=== PATIENT | male | born 1945 | race Caucasian/White ===

== ENCOUNTER 2018-11-15 11:38 | Observation (INO) ==
[2018-11-07 08:47] LABS: HEMOGLOBIN 15.6 g/dL (14.0-18.0); MCH 30.6 PG (27-31); MCHC 33.9 g/dL (33-37); MCV 90.2 FL (81-99); MPV 11.7 FL (7.4-10.4); RBC 5.1 XMIL (4.7-6.1); RDW 13.8 % (11.5-14.5); WBC 6.37 X1000 (4.8-10.8)
--- NOTE | 2018-11-07 09:01 | EKG Report ---
Test Performed on : 11/07/2018 08:04:46 AM Test Reason : pat Blood Pressure : / mmHG Vent. Rate : 070 BPM Atrial Rate : 057 BPM P-R Int : 168 ms QRS Dur : 094 ms QT Int : 400 ms P-R-T Axes : 014 -34 -10 degrees QTc Int : 432 ms Sinus bradycardia. with occasional premature ventricular complexes. Left axis deviation Nonspecific T wave abnormality Abnormal ECG When compared with ECG of 24-JUN-2016 07:08, No significant change was found Confirmed by Josué MCKENNA, Luis Ornelas ([id number]) on 11/08/2018 6:36:13 PM
[2018-11-07 09:19] LABS: AGAP 11; BUN 9 mg/dL (8-22); CALCIUM 8.8 mg/dL (8.8-10.2); CHLORIDE 104 mmol/L (98-107); COSMO 280; ESTIMATED GFR > 60; GLUCOSE 98 mg/dL (70-104); POTASSIUM 3.9 mmol/L (3.5-5.1); SODIUM 141 mmol/L (136-145); TCO2 26 mmol/L (25-35)
[~2018-11-15 11:38] MED LIST: DIPRIVAN 1% ONE; XYLOCAINE-MPF 2% ONE
[2018-11-15] MEDS ORDERED: XYLOCAINE-MPF 2% ONE (13:08)
[2018-11-15] MEDS ORDERED: QUELICIN (DOSE) ONE (13:08)
[2018-11-15] MEDS ORDERED: DIPRIVAN 1% ONE (13:08)
[2018-11-15] MEDS ORDERED: NORCURON ONE (13:45)
[2018-11-15] MEDS ORDERED: FENTANYL ONE ×2 (14:03→14:35)
[2018-11-15] MEDS ORDERED: ZOFRAN ONE (14:12)
[2018-11-15] MEDS ORDERED: DECADRON ONE (14:12)
[2018-11-15] MEDS: NEOSPORIN G.U. IRRIGANT ONE ×2 (14:17→16:56)
[2018-11-15] MEDS ORDERED: LR 1,000 ML ONE (14:27)
[2018-11-15] MEDS ORDERED: REGLAN ONE (14:27)
[2018-11-15] MEDS ORDERED: KEFZOL 1 GM/D5W 2 GM/100 ML IVPB ONE (14:27)
[2018-11-15] MEDS ORDERED: PEPCID ONE (14:27)
[2018-11-15] MEDS ORDERED: ROBINUL ONE ×2 (14:52→16:43)
[2018-11-15] MEDS ORDERED: EPHEDRINE ONE (15:58)
[2018-11-15] MEDS ORDERED: ZEMURON ONE (16:09)
[2018-11-15] MEDS ORDERED: B & O 15A SUPP ONE (16:40)
[2018-11-15] MEDS ORDERED: NEOSTIGMINE ONE (16:44)
[2018-11-15] MEDS: DILAUDID ONE ×4 (17:40→18:04)
[2018-11-15] MEDS ORDERED: NORCO-5 PO PRN (19:24)
[2018-11-15] MEDS ORDERED: NORCO-10 PO PRN (19:24)
[2018-11-15] MEDS ORDERED: NORCO-7.5 PO PRN (19:25)
[2018-11-15] MEDS ORDERED: SALINE LOCK IV FLUID XX ONE (19:29)
[2018-11-15] MEDS ORDERED: SODIUM CHLORIDE 0.9% INJ PRN (19:30)
[2018-11-15] MEDS ORDERED: PHENERGAN IV PRN (19:30)
[2018-11-15] MEDS ORDERED: LABETALOL IV PRN (19:30)
[2018-11-15] MEDS ORDERED: B & O 15A SUPP PR PRN (19:30)
--- NOTE | 2018-11-15 20:11 | OPERATIVE NOTE ---
PROCEDURE DATE: 11/15/2018 SURGEON: Dr. Kong Bautista. PREOPERATIVE DIAGNOSES: Enlarged prostate with obstructive voiding, gross hematuria, and cold cup biopsies of the prostatic urethra. ANESTHESIA: General endotracheal. FINDINGS: Cystoscopic exam: Urethra - greater than 21 [place] without stricture. Prostate - papillary-like lesions or polyps in the distal prostatic urethra. Prostate coapting lateral lobes, length 7 cm median lobe. Bladder - the ureteral orifices could not be visualized with the cystoscope secondary to bleeding. There were grade 3 trabeculations and cellules. After the prostate was removed and the bleeding was under control, the ureteral orifices were normal bilaterally and no papillary lesions seen in the bladder. A rectal exam reveals a prostate of greater than 100 grams and smooth. INDICATION FOR PROCEDURE: This 72-year-old male has a history of intermittent gross hematuria with obstructive voiding symptoms. An in-office cystoscopic exam revealed a markedly-enlarged prostate with the lesions in the distal prostatic urethra. DESCRIPTION OF PROCEDURE: After informed consent was obtained from the patient and him receiving IV antibiotics, he was taken the main OR cystoscopy room and placed in a supine position. General endotracheal anesthesia was achieved. He was then placed in the low lithotomy position and prepped and draped in the usual sterile fashion for cystoscopic exam. A 21-Guamanian cystoscope was passed through the patient's urethra, prostate, and into the bladder. It was planned to do bilateral retrograde ureteral pyelograms, but because of the large prostate and some bleeding the ureteral orifices could not initially be visualized. The cystoscope was removed. A 28-Guamanian continuous flow resectoscope sheath was placed. The thick Gyrus loop electrode was placed. With the large scope, the ureteral orifices were able to be visualized and appeared normal. The verumontanum was visualized. The resection was started at the 6 o'clock position, going part way up on the right lateral lobe and part way up on the left lateral lobe. This was to open a channel and 3 steps had to be taken because of the very large length of the prostate. After the channel was open, the resection was started at the 6 o'clock position going from the level of the bladder neck and level of the verumontanum proceeding in a counterclockwise direction to the 2 o'clock position. The resection was then started back at the 6 o'clock position going from the level of bladder neck and the level of the verumontanum in steps. The resection was taken up to the 10 o'clock position. Tissue from the anterior prostatic urethra was then removed from the level of bladder neck and level of the verumontanum between the 2 o'clock and 10 o'clock positions. The [employer] evacuator was used to remove chips. This had to be done twice during the case because of the size of the prostate. Hemostasis was achieved with electrocautery. at completion both ureteral orifices were intact and the verumontanum was intact. The bladder neck was incised at the 6 o'clock position. The channel was wide open. The patient will have bilateral retrograde ureteral pyelograms at a different time. He tolerated the procedure well. Estimated blood loss was about 500 mL. A 26-Guamanian 3-way Ness was passed through the patient's urethra, prostate, and the bladder without difficulty. Then 40 mL of sterile water was placed in the Ness's balloon. The efflux was light pink. Continuous bladder irrigation was started and it completely cleared. He was taken to the recovery room in good condition. cc: Kong Bautista MD MTDD
[2018-11-15] MEDS: KEFZOL 1 GM/D5W 1 GM/50 ML IVPB IV SCH (21:19)
[2018-11-15] MEDS: COLACE PO SCH (21:20)
[2018-11-15] MEDS: PEPCID PO SCH (21:20)
[2018-11-15] MEDS: LR 1,000 ML IV SCH (22:01)
[2018-11-16] MEDS: KEFZOL 1 GM/D5W 1 GM/50 ML IVPB IV SCH (05:10)
[2018-11-16 06:48] LABS: BASO# 0.01 X1000 (0.0-0.2); BASO% 0.1 % (0.0-0.8); EOS# 0.09 X1000 (0.0-0.7); EOS% 0.8 % (0.0-10.0); HEMATOCRIT 39.4 % (42.0-52.0); HEMOGLOBIN 13.1 g/dL (14.0-18.0); LYMPH% 16.4 % (20.5-51.1); MCH 30.7 PG (27-31); MCHC 33.2 g/dL (33-37); MCV 92.3 FL (81-99); MONO# 0.74 X1000 (0.11-0.59); MONO% 6.4 % (1.7-9.3); MPV 12.2 FL (7.4-10.4); NEUT# 8.85 X1000 (1.4-6.5); NEUT% 76.3 % (42.2-75.2); PLT 145 X1000 (130-400); RBC 4.27 XMIL (4.7-6.1); RDW 13.8 % (11.5-14.5); WBC 11.59 X1000 (4.8-10.8)
[2018-11-16 07:29] LABS: AGAP 8; BUN 9 mg/dL (8-22); CHLORIDE 106 mmol/L (98-107); COSMO 281; ESTIMATED GFR > 60; GLUCOSE 154 mg/dL (70-104); POTASSIUM 4.2 mmol/L (3.5-5.1); SODIUM 140 mmol/L (136-145); TCO2 26 mmol/L (25-35)
[2018-11-16 07:32] VITALS: BP 111/55
[2018-11-16] MEDS: PEPCID PO SCH ×2 (07:50→10:22)
[2018-11-16] MEDS: COLACE PO SCH ×2 (07:50→10:22)
[2018-11-16] MEDS: LR 1,000 ML IV SCH (08:36)
[2018-11-17] MEDS ORDERED: CENTRUM SILVER PO SCH (09:00)
== END 2018-11-16 10:31 | disposition home or self-care (01) ==
LOC: PAT 11:38 → 4N 11:38
PROVIDERS: ADMIT Urology; ATTEND Urology
PROC: UR.TURP (2018-11-15 13:44)
CPT/HCPCS: 80048; 85025; 85027; 88305; 88313; 93005; 93010; 96374; 96376; A9270; G0378; G0379; J0330; J0690; J1100; J1170; J2405; J3010; J7120; Q9966; Q9967